=== PATIENT | female | born 2000 | race Caucasian/White ===

== ENCOUNTER 2019-10-16 22:23 | Emergency (ER) | payer OTHER ==
[~2019-10-16] VITALS: Ht 162.6 cm; Wt 655.5 kg
[2019-10-16 23:18] LABS: POTASSIUM 2.6 mmol/L (3.6-5.2)
[2019-10-16 23:43] LABS: PLATELET COUNT 241 K/uL (152-353)
[2019-10-17 00:10] VITALS: BP 116/63; TEMP 99.1
== END 2019-10-17 00:10 | disposition home or self-care (01) ==
LOC: ED 22:23
PROVIDERS: Family Medicine
DX: N39.0 Urinary tract infection, site not specified (principal)
CPT/HCPCS: 36415; 80053; 81000; 81025; 85027; 87086; 87088; 96360; 96365; 96366; 99284; J0132; J0696